=== PATIENT | female | born 1940 | race Caucasian/White ===

== ENCOUNTER 2019-12-30 08:05 | Inpatient (IN) | payer OTHER ==
[2019-12-31] MEDS ORDERED: CLONAZEPAM2 MG (08:19)
[2019-12-31] MEDS ORDERED: SYNTHROID75 MCG (08:20)
[2019-12-31] MEDS ORDERED: MAXIMUM D3325 MCG (08:20)
[2019-12-31] MEDS ORDERED: ENALAPRIL MALEA10 MG (08:20)
[2019-12-31] MEDS ORDERED: NORVASC2.5 MG (08:21)
[2020-01-01] MEDS ORDERED: RECTICARE30 GM TOP (12:02)
[2020-01-01] MEDS ORDERED: 8 HOUR PAIN RE650 M1 PO (12:03)
== END 2020-01-01 14:00 | disposition home or self-care (01) | DRG 331 ==
LOC: CIR.AMB 08:05 → SURH 16:53 → O/R 16:53 → SURH 16:54
PROVIDERS: ADMIT Surgery; ATTEND Surgery
PROC: 0DQP8ZZ Repair Rectum, Via Natural or Artificial Opening Endoscopic (ICD-10-PCS; principal; 2019-12-30 15:30)
DX: K62.3 Rectal prolapse (principal); E03.9 Hypothyroidism, unspecified; I10 Essential (primary) hypertension